=== PATIENT | female | born 1935 | race Caucasian/White ===

== ENCOUNTER 2016-04-16 17:48 | Inpatient (IN) | payer OTHER ==
[~2016-04-16] VITALS: Ht 157.5 cm; Wt 60.1 kg
[~2016-04-16 17:48] MED LIST: ARICEPT10 MG PO; ASPIR-LOW81 MG PO; ASPIRIN325 MG PO; CIPRO500 MG PO; DONEPEZIL HCL10 MG PO; ECOTRIN325 MG PO; HYDROCHLOROTHIA25 MG PO; MONOPRIL20 MG PO; MULTI-DAY VITA1 EACH PO; SIMVASTATIN40 MG PO; TAMIFLU30 MG PO; TOPROL XL50 MG PO; VITAMIN D1000 INTUN PO; VITAMIN D35000 UNIT PO; ZOCOR40 MG PO
[2016-04-16 20:34] LABS: EOSINOPHIL (%) 0 % (0-5); IMMATURE GRANULOCYTE (%) 0.6 % (0.0-0.7); IMMATURE GRANULOCYTE COUNT 1.2 K/uL; LYMPHOCYTE COUNT 1.3 K/uL (1.0-2.8); MCHC 34.1 G/DL (30.0-36.0); MCV 85.1 FL (83-99); MEAN PLAT.VOLUME 10.5 uM^3 (9.5-12.4); MONOCYTE (%) 4.5 % (3-12); MONOCYTE COUNT 0.9 K/uL (0-0.8); NEUTROPHIL (%) 88.4 % (45-76); NEUTROPHIL COUNT 18.5 K/uL (1.8-6.4); PLATELET COUNT 312 K/uL (156-360); RBC DIS.WIDTH-CV 12.7 % (11.8-14.6); RBC DIS.WIDTH-SD 38.9 % (39-53); RED BLOOD COUNT 5.17 M/uL (3.80-5.20); WHITE BLOOD COUNT 20.9 K/uL (4.1-10.2)
[2016-04-16 20:43] LABS: CHLORIDE 106 mEq/L (99-109); POTASSIUM 4.5 mEq/L (3.7-5.4); SODIUM 141 mEq/L (136-147)
[2016-04-16 20:45] LABS: GLUCOSE 121 mg/dL (70-99)
[2016-04-16 20:46] LABS: ANION GAP 13 MEQ/L (2-14)
[2016-04-16 20:47] LABS: TOTAL BILIRUBIN 0.3 mg/dL (0.0-1.0)
[2016-04-16 20:49] LABS: ALKALINE PHOSPHATASE 72 IU/L (3-129); GFR ESTIMATE (CALCULATED) > 59 mL/min/
[2016-04-16 20:50] LABS: UREA NITROGEN (BUN) 15 mg/dL (9-23)
[2016-04-16 20:55] LABS: TROP-I INTERPRETATION NEGATIVE; TROPONIN-I < 0.01 ng/mL (0.0-0.30)
[2016-04-16 22:23] LABS: BILIRUBIN NEGATIVE; BLOOD MODERATE; COLOR YELLOW ((YELLOW)); GLUCOSE (STRIP) NEGATIVE; KETONES NEGATIVE; SPECIFIC GRAVITY 1.005 (1.000-1.030)
[2016-04-16 22:24] LABS: ADD MIUA? YES; LEUKOCYTES LARGE; NITRITE NEGATIVE; PH, URINE 8.5 (5-8); PROTEIN (STRIP) 30; UROBILINOGEN 0.2 MG/DL (0.2-1.0)
[2016-04-16 22:38] LABS: CASTS NONE SEEN /LPF; EPITHELIAL CELLS 1+ /HPF; MUCUS NONE SEEN /LPF
[2016-04-16 22:39] LABS: BACTERIA 4+ /HPF; RED BLOOD CELLS 0-5 /HPF (0-5); UCUL ADDED? YES; WHITE BLOOD CELLS TNTC /HPF (0-5)
[2016-04-17 08:00] LABS: HEMATOCRIT 38.6 % (36.0-46.0); MCH 28.6 PG (29.0-34.0); MCHC 33.4 G/DL (30.0-36.0); MCV 85.6 FL (83-99); MEAN PLAT.VOLUME 10.5 uM^3 (9.5-12.4); PLATELET COUNT 278 K/uL (156-360); RBC DIS.WIDTH-CV 12.7 % (11.8-14.6); RBC DIS.WIDTH-SD 38.8 % (39-53); RED BLOOD COUNT 4.51 M/uL (3.80-5.20)
[2016-04-17 08:01] LABS: WHITE BLOOD COUNT 12.6 K/uL (4.1-10.2)
[2016-04-17 17:46] VITALS: BP 155/71
[2016-04-17 20:30] VITALS: BP 142/67
[2016-04-18 00:38] VITALS: BP 172/67
[2016-04-18 03:39] VITALS: BP 152/78
[2016-04-18 08:03] VITALS: BP 109/56
[2016-04-18 23:30] VITALS: BP 169/77
[2016-04-19 08:38] VITALS: BP 142/63
== END 2016-04-19 09:36 | disposition home or self-care (01) | DRG 177 ==
LOC: EME → EDBD 17:48 → EDOF 22:21 → 5EAST 22:21 → EDOF 04-17 14:28 → 5EAST 04-17 15:43
PROVIDERS: Emergency Medicine; Internal Medicine
DX: J69.0 Pneumonitis due to inhalation of food and vomit (principal); G93.41 Metabolic encephalopathy; N39.0 Urinary tract infection, site not specified; I10 Essential (primary) hypertension; E78.5 Hyperlipidemia, unspecified; G30.9 Alzheimer's disease, unspecified; F02.80 Dementia in other diseases classified elsewhere, unspecified severity, without behavioral disturbance, psychotic disturbance, mood disturbance, and anxiety; R55 Syncope and collapse
CPT/HCPCS: 70450; 71020; 80048; 80053; 81003; 83605; 84484; 85025; 85027; 87040; 87086; 93005; 99281; 99285; J0696; J1650; J2543; J3370; J7030; J7050

== ENCOUNTER 2016-06-08 12:19 | Observation (INO) | payer OTHER ==
[~2016-06-08] VITALS: Ht 147.3 cm; Wt 63.4 kg
[2016-06-08 13:06] LABS: EOSINOPHIL (%) 1.4 % (0-5); EOSINOPHIL COUNT 0.2 K/uL (0-0.3); HEMATOCRIT 43.1 % (36.0-46.0); IMMATURE GRANULOCYTE (%) 1.2 % (0.0-0.7); IMMATURE GRANULOCYTE COUNT 0.2 K/uL; INSTRUMENT ABS NEUTROPHIL CT 9.6 K/uL; MCH 28.2 PG (29.0-34.0); MCHC 32.5 G/DL (30.0-36.0); MCV 86.9 FL (83-99); MEAN PLAT.VOLUME 10.1 uM^3 (9.5-12.4); MONOCYTE (%) 8.4 % (3-12); MONOCYTE COUNT 1.1 K/uL (0-0.8); NEUTROPHIL (%) 73.1 % (45-76); NEUTROPHIL COUNT 9.6 K/uL (1.8-6.4); PLATELET COUNT 375 K/uL (156-360); RBC DIS.WIDTH-CV 12.4 % (11.8-14.6); RBC DIS.WIDTH-SD 39.5 % (39-53); RED BLOOD COUNT 4.96 M/uL (3.80-5.20)
[2016-06-08 13:15] LABS: CHLORIDE 106 mEq/L (99-109); POTASSIUM 4.4 mEq/L (3.7-5.4); SODIUM 139 mEq/L (136-147)
[2016-06-08 13:17] LABS: GLUCOSE 143 mg/dL (70-99)
[2016-06-08 13:18] LABS: ANION GAP 12 MEQ/L (2-14)
[2016-06-08 13:19] LABS: TOTAL BILIRUBIN 0.3 mg/dL (0.0-1.0)
[2016-06-08 13:20] LABS: ALKALINE PHOSPHATASE 75 IU/L (3-129)
[2016-06-08 13:21] LABS: GFR ESTIMATE (CALCULATED) 57 mL/min/
[2016-06-08 13:22] LABS: UREA NITROGEN (BUN) 17 mg/dL (9-23)
[2016-06-08 13:29] LABS: TROP-I INTERPRETATION NEGATIVE; TROPONIN-I 0.03 ng/mL (0.0-0.30)
[2016-06-08] MEDS ORDERED: DAILY VITE1 EAC1 PO (14:09)
[2016-06-08 17:15] VITALS: BP 143/64
[2016-06-08 20:00] VITALS: BP 148/59
[2016-06-08 20:18] LABS: TROP-I INTERPRETATION NEGATIVE; TROPONIN-I < 0.01 ng/mL (0.0-0.30)
[2016-06-09 00:06] VITALS: BP 143/73
[2016-06-09 06:45] LABS: HEMATOCRIT 37.2 % (36.0-46.0); MCH 28.6 PG (29.0-34.0); MCHC 32.8 G/DL (30.0-36.0); MCV 87.3 FL (83-99); MEAN PLAT.VOLUME 10.7 uM^3 (9.5-12.4); PLATELET COUNT 295 K/uL (156-360); RBC DIS.WIDTH-CV 12.6 % (11.8-14.6); RBC DIS.WIDTH-SD 40.2 % (39-53); RED BLOOD COUNT 4.26 M/uL (3.80-5.20); WHITE BLOOD COUNT 10.1 K/uL (4.1-10.2)
[2016-06-09 06:46] LABS: TROP-I INTERPRETATION NEGATIVE; TROPONIN-I < 0.01 ng/mL (0.0-0.30)
[2016-06-09 09:00] VITALS: BP 147/68
[2016-06-09 10:19] LABS: ADD MIUA? YES; BILIRUBIN NEGATIVE; BLOOD SMALL; COLOR YELLOW ((YELLOW)); GLUCOSE (STRIP) NEGATIVE; KETONES NEGATIVE; LEUKOCYTES TRACE; NITRITE NEGATIVE; PROTEIN (STRIP) NEGATIVE; SPECIFIC GRAVITY 1.014 (1.000-1.030); UROBILINOGEN 0.2 MG/DL (0.2-1.0)
[2016-06-09 10:24] LABS: BACTERIA NONE SEEN /HPF; EPITHELIAL CELLS RARE /HPF; MUCUS TRACE /LPF; UCUL ADDED? NO; WHITE BLOOD CELLS 0-5 /HPF (0-5)
[2016-06-09 12:19] VITALS: BP 153/68
== END 2016-06-09 16:10 | disposition home health service (06) ==
LOC: EME → EDBD 12:19 → EDOF 14:23 → 5WEST 14:23
PROVIDERS: Emergency Medicine; Internal Medicine; Physician Assistant Medical
DX: R55 Syncope and collapse (principal); G30.9 Alzheimer's disease, unspecified; F02.80 Dementia in other diseases classified elsewhere, unspecified severity, without behavioral disturbance, psychotic disturbance, mood disturbance, and anxiety; I48.91 Unspecified atrial fibrillation; E78.5 Hyperlipidemia, unspecified; I10 Essential (primary) hypertension; D72.829 Elevated white blood cell count, unspecified
CPT/HCPCS: 71020; 80053; 81003; 84484; 85025; 85027; 93005; 93306; 99281; 99285; G0378; G8978 GP CM; G8979 CJ; G8980 GP CM; G8987 CK; G8988 GO CJ; G8989 GO CK; J1650; J7030

== ENCOUNTER 2017-06-01 09:33 | Observation (INO) | payer OTHER ==
[~2017-06-01] VITALS: Ht 147.3 cm; Wt 69.1 kg
[~2017-06-01 09:33] MED LIST changes: +DAILY VITE1 EAC1 PO
[2017-06-01 10:11] LABS: BASOPHIL (%) 0.3 % (0-1); EOSINOPHIL (%) 1.8 % (0-5); EOSINOPHIL COUNT 0.2 K/uL (0-0.3); HEMATOCRIT 45.5 % (36.0-46.0); HEMOGLOBIN 14.9 G/DL (11.9-15.5); IMMATURE GRANULOCYTE (%) 1.3 % (0.0-0.7); LYMPHOCYTE (%) 24.6 % (15-42); LYMPHOCYTE COUNT 2.9 K/uL (1.0-2.8); MCH 29.1 PG (29.0-34.0); MCHC 32.7 G/DL (30.0-36.0); MCV 88.9 FL (83-99); MONOCYTE (%) 7.6 % (3-12); MONOCYTE COUNT 0.9 K/uL (0-0.8); NEUTROPHIL (%) 64.4 % (45-76); NEUTROPHIL COUNT 7.5 K/uL (1.8-6.4); PLATELET COUNT 379 K/uL (156-360); RBC DIS.WIDTH-CV 12.4 % (11.8-14.6); RBC DIS.WIDTH-SD 40.9 % (39-53); RED BLOOD COUNT 5.12 M/uL (3.80-5.20); WHITE BLOOD COUNT 11.7 K/uL (4.1-10.2)
[2017-06-01 10:52] LABS: TROP-I INTERPRETATION NEGATIVE; TROPONIN-I < 0.01 ng/mL (0.0-0.30)
[2017-06-01 11:04] LABS: ALBUMIN 4.1 G/DL (3.2-4.8); CHLORIDE 105 MEQ/L (99-109); POTASSIUM 4.1 MEQ/L (3.7-5.4); SODIUM 140 MEQ/L (136-147); TOTAL BILIRUBIN 0.5 MG/DL (0.0-1.0)
[2017-06-01 11:10] LABS: ALKALINE PHOSPHATASE 71 IU/L (3-129); ALT (GPT) 45 IU/L (3-49); AST (GOT) 44 IU/L (2-34); CREATININE 0.9 MG/DL (0.6-1.3); GFR ESTIMATE (CALCULATED) > 59 mL/min/; GLUCOSE 201 mg/dL (70-99); TOTAL PROTEIN 7.1 G/DL (6.4-8.3); UREA NITROGEN (BUN) 13 mg/dL (9-23)
[2017-06-01 14:48] VITALS: BP 142/66
[2017-06-01 17:05] LABS: TROP-I INTERPRETATION NEGATIVE; TROPONIN-I < 0.01 ng/mL (0.0-0.30)
[2017-06-01 18:30] LABS: APPEARANCE SL.HAZY ((CLEAR)); BILIRUBIN NEGATIVE; BLOOD SMALL; COLOR YELLOW ((YELLOW)); GLUCOSE (STRIP) NEGATIVE; KETONES NEGATIVE; LEUKOCYTES TRACE; NITRITE NEGATIVE; PROTEIN (STRIP) NEGATIVE; SPECIFIC GRAVITY 1.047 (1.000-1.030)
[2017-06-01 18:39] LABS: BACTERIA 1+ /HPF; EPITHELIAL CELLS 1+ /HPF; MUCUS TRACE /LPF; RED BLOOD CELLS 15-20 /HPF (0-5); UCUL ADDED? YES
[2017-06-01 23:46] LABS: TROP-I INTERPRETATION NEGATIVE; TROPONIN-I < 0.01 ng/mL (0.0-0.30)
[2017-06-02 00:31] VITALS: BP 137/67
[2017-06-02 03:49] VITALS: BP 188/72
[2017-06-02 05:01] VITALS: BP 174/81
[2017-06-02 05:11] LABS: HEMATOCRIT 43.2 % (36.0-46.0); MCH 28.9 PG (29.0-34.0); MCHC 32.4 G/DL (30.0-36.0); MCV 89.1 FL (83-99); PLATELET COUNT 315 K/uL (156-360); RBC DIS.WIDTH-CV 12.7 % (11.8-14.6); RBC DIS.WIDTH-SD 41.3 % (39-53); RED BLOOD COUNT 4.85 M/uL (3.80-5.20); WHITE BLOOD COUNT 12.1 K/uL (4.1-10.2)
[2017-06-02 06:09] LABS: CHLORIDE 105 MEQ/L (99-109); CREATININE 0.9 MG/DL (0.6-1.3); GFR ESTIMATE (CALCULATED) > 59 mL/min/; POTASSIUM 4.6 MEQ/L (3.7-5.4); SODIUM 137 MEQ/L (136-147); UREA NITROGEN (BUN) 13 mg/dL (9-23)
[2017-06-02 06:11] LABS: GLUCOSE 98 mg/dL (70-99)
[2017-06-02 10:43] LABS: HEMOGLOBIN A1c (GLYCOHEMOGLOB) 5.6 % (Below 5.7)
[2017-06-02] MEDS ORDERED: BACTRIM,SEPT1 TABLET PO (10:53)
[2017-06-02 11:26] VITALS: BP 133/62
== END 2017-06-02 12:00 | disposition home or self-care (01) ==
LOC: EME 09:33 → EDOF 12:59 → 5WEST 12:59 → ENRESERV 13:04 → EDOF 14:02 → 5WEST 14:29 → ENPENDDIS 06-02 → 5WEST 06-02 12:00
PROVIDERS: Emergency Medicine; Physician Assistant Medical
DX: R55 Syncope and collapse (principal); F03.90 Unspecified dementia, unspecified severity, without behavioral disturbance, psychotic disturbance, mood disturbance, and anxiety; I10 Essential (primary) hypertension; E78.5 Hyperlipidemia, unspecified; Z79.82 Long term (current) use of aspirin; R35.0 Frequency of micturition; R42 Dizziness and giddiness; K21.9 Gastro-esophageal reflux disease without esophagitis; Z87.891 Personal history of nicotine dependence
CPT/HCPCS: 70450; 71045; 74177; 80048; 80053; 81003; 83036; 84484; 85025; 85027; 87086; 93005; 99281; 99285; G0378; J1650; J2405; J7030

== ENCOUNTER 2017-06-27 10:50 | Observation (INO) | payer OTHER ==
[~2017-06-27] VITALS: Ht 152.4 cm; Wt 74.0 kg
[~2017-06-27 10:50] MED LIST changes: +BACTRIM,SEPT1 TABLET PO
[2017-06-27 12:41] LABS: BASOPHIL (%) 0.2 % (0-1); EOSINOPHIL (%) 0.1 % (0-5); HEMATOCRIT 45.9 % (36.0-46.0); IMMATURE GRANULOCYTE (%) 0.9 % (0.0-0.7); LYMPHOCYTE (%) 6.8 % (15-42); LYMPHOCYTE COUNT 1.2 K/uL (1.0-2.8); MCH 29.1 PG (29.0-34.0); MCHC 32.7 G/DL (30.0-36.0); MCV 89.1 FL (83-99); MONOCYTE (%) 5.9 % (3-12); NEUTROPHIL (%) 86.1 % (45-76); PLATELET COUNT 311 K/uL (156-360); RBC DIS.WIDTH-CV 12.4 % (11.8-14.6); RBC DIS.WIDTH-SD 40.9 % (39-53); RED BLOOD COUNT 5.15 M/uL (3.80-5.20); WHITE BLOOD COUNT 17.5 K/uL (4.1-10.2)
[2017-06-27 13:03] LABS: TROP-I INTERPRETATION NEGATIVE; TROPONIN-I < 0.01 ng/mL (0.0-0.30)
[2017-06-27 13:21] LABS: ALBUMIN 4.2 g/dL (3.2-4.8); CHLORIDE 107 mEq/L (99-109); POTASSIUM 5.6 mEq/L (3.7-5.4); SODIUM 140 mEq/L (136-147)
[2017-06-27 13:22] LABS: MAGNESIUM 3.1 mg/dL (1.3-2.7)
[2017-06-27 13:23] LABS: GLUCOSE 121 mg/dL (70-99)
[2017-06-27 13:24] LABS: TOTAL PROTEIN 8.1 g/dL (6.4-8.3)
[2017-06-27 13:25] LABS: TOTAL BILIRUBIN 0.4 mg/dL (0.0-1.0)
[2017-06-27 13:27] LABS: ALKALINE PHOSPHATASE 88 IU/L (3-129); CREATININE 0.8 mg/dL (0.6-1.3); GFR ESTIMATE (CALCULATED) > 59 mL/min/
[2017-06-27 13:28] LABS: UREA NITROGEN (BUN) 15 mg/dL (9-23)
[2017-06-27 13:29] LABS: AST (GOT) 68 IU/L (2-34)
[2017-06-27 13:30] LABS: ALT (GPT) 68 IU/L (3-49)
[2017-06-27 13:31] LABS: LIPASE 32 U/L (1.0-51.0)
[2017-06-27 13:56] LABS: BILIRUBIN NEGATIVE; BLOOD NEGATIVE; COLOR YELLOW ((YELLOW)); GLUCOSE (STRIP) NEGATIVE; KETONES NEGATIVE; LEUKOCYTES NEGATIVE; NITRITE NEGATIVE; PROTEIN (STRIP) 30; SPECIFIC GRAVITY 1.027 (1.000-1.030); UROBILINOGEN 0.2 MG/DL (0.2-1.0)
[2017-06-27 13:57] LABS: APPEARANCE CLEAR ((CLEAR)); UCUL ADDED? NO
[2017-06-27 19:58] LABS: TROP-I INTERPRETATION NEGATIVE; TROPONIN-I < 0.01 ng/mL (0.0-0.30)
[2017-06-27 20:08] VITALS: BP 128/61
[2017-06-28 00:21] VITALS: BP 133/61
[2017-06-28 00:59] LABS: TROP-I INTERPRETATION NEGATIVE; TROPONIN-I < 0.01 ng/mL (0.0-0.30)
[2017-06-28 05:49] LABS: BASOPHIL (%) 0.7 % (0-1); BASOPHIL COUNT 0.1 K/uL (0-0.1); EOSINOPHIL (%) 1.4 % (0-5); EOSINOPHIL COUNT 0.2 K/uL (0-0.3); HEMATOCRIT 38.4 % (36.0-46.0); IMMATURE GRANULOCYTE (%) 0.5 % (0.0-0.7); LYMPHOCYTE (%) 10.9 % (15-42); LYMPHOCYTE COUNT 1.1 K/uL (1.0-2.8); MCH 28.2 PG (29.0-34.0); MCV 88.1 FL (83-99); MONOCYTE (%) 9.7 % (3-12); NEUTROPHIL (%) 76.8 % (45-76); PLATELET COUNT 314 K/uL (156-360); RBC DIS.WIDTH-CV 12.5 % (11.8-14.6); RBC DIS.WIDTH-SD 40.6 % (39-53); RED BLOOD COUNT 4.36 M/uL (3.80-5.20); WHITE BLOOD COUNT 10.4 K/uL (4.1-10.2)
[2017-06-28 05:50] LABS: HEMOGLOBIN 12.3 G/DL (11.9-15.5)
[2017-06-28 05:58] LABS: ALBUMIN 3.6 G/DL (3.2-4.8); ALKALINE PHOSPHATASE 61 IU/L (3-129); ALT (GPT) 44 IU/L (3-49); AST (GOT) 36 IU/L (2-34); CHLORIDE 110 MEQ/L (99-109); CREATININE 0.7 MG/DL (0.6-1.3); DIRECT BILIRUBIN 0.1 mg/dL (0.0-0.3); GFR ESTIMATE (CALCULATED) > 59 mL/min/; GLUCOSE 112 mg/dL (70-99); SODIUM 141 MEQ/L (136-147); TOTAL BILIRUBIN 0.3 MG/DL (0.0-1.0); TOTAL PROTEIN 5.6 G/DL (6.4-8.3); UREA NITROGEN (BUN) 14 mg/dL (9-23)
[2017-06-28 07:47] VITALS: BP 127/59
== END 2017-06-28 11:37 | disposition home or self-care (01) ==
LOC: EME 10:50 → EDOF 17:03 → 4SOUTH 17:03 → ENRESERV 17:05 → 4SOUTH 19:45 → ENPENDDIS 06-28 → 4SOUTH 06-28 11:37
PROVIDERS: Emergency Medicine; Hospitalist
DX: R55 Syncope and collapse (principal); E87.5 Hyperkalemia; R74.0 Nonspecific elevation of levels of transaminase and lactic acid dehydrogenase [LDH]; D72.829 Elevated white blood cell count, unspecified; E87.2 Acidosis; I27.20 Pulmonary hypertension, unspecified; I10 Essential (primary) hypertension; E78.5 Hyperlipidemia, unspecified; F03.90 Unspecified dementia, unspecified severity, without behavioral disturbance, psychotic disturbance, mood disturbance, and anxiety; Z79.82 Long term (current) use of aspirin; K21.9 Gastro-esophageal reflux disease without esophagitis
CPT/HCPCS: 70450; 70551; 71045; 74177; 80048; 80053; 80076; 81003; 83605; 83690; 83735; 84484; 85025; 93005; 99281; 99285; G0378; J1200; J1644; J2060; J7030; J7040